=== PATIENT | female | born 1965 | race Caucasian/White ===

== ENCOUNTER → 2017-12-11 | Outpatient (CLI) | payer OTHER ==
[~2017-12-11] VITALS: Ht 170.2 cm; Wt 95.3 kg
[~2017-12-11] MED LIST: CATHETER FLUSH 10 ML SYR IV PRN
[2017-12-11 08:07] VITALS: BP 128/74
--- NOTE | 2017-12-11 15:40 | STRESS TEST ---
DATE OF SERVICE: 12/11/2017 RESTING AND POST-EXERCISE TECHNETIUM-99M TETROFOSMIN SPECT CT IMAGING PRIMARY CARE PHYSICIAN: Dr. Curtis. CLINICAL DIAGNOSIS: Chest discomfort. Baseline images were carried out after injection of 10.96 mCi of technetium-99m Tetrofosmin and, subsequently, exercise was carried on treadmill. This part of the study was carried out under Dr. Curtis's supervision and supervision is reported separately by him. After the patient had attained 85% of maximum predicted heart rate, 30.1 mCi of technetium-99m Tetrofosmin were injected and the exercise was continued for another minute. Review of images at rest and following stress does not indicate any distinct perfusion defects consistent with significant myocardial ischemia or infarction. Gated images showed normal global left ventricular systolic function with normal regional wall motion. Left ventricular ejection fraction is calculated to be 71%. Left ventricular end diastolic volume is 72 mL. TID is absent (0.93). CONCLUSIONS: 1. No evidence of significant myocardial ischemia or infarction. 2. Normal regional wall motion. 3. Normal global left ventricular systolic function with a calculated ejection fraction of 71%. Job ID: [id number] DocumentID: [id number] Dictated Date: 12/11/2017 14:51:19 Tooth Polisher Date: 12/11/2017 15:26:45 Dictated By: NAT GONZALEZ MD, MA, FACP, FACC,
== END ==
LOC: CARD 06:40
PROVIDERS: ATTEND Internal Medicine
DX: R07.9 Chest pain, unspecified (principal)
CPT/HCPCS: 78452; 93017

== ENCOUNTER → 2018-10-12 | Outpatient (CLI) | payer OTHER ==
--- NOTE | 2018-10-12 10:34 | Diagnostic Imaging Report ---
INDICATION: Preop evaluation prior to left knee arthroplasty.. TECHNIQUE: Single view chest 10:22 AM. CORRELATION STUDY: None FINDINGS: The heart size, mediastinal configuration and pulmonary vascularity are within normal limits. The lungs are clear with no consolidating infiltrate. There is no significant effusion or pneumothorax. IMPRESSION: 1. No radiographic findings to suggest acute abnormality of the chest. Dictated by: Dictated on workstation # [id number]
== END ==
LOC: CARD 10:09
DX: Z01.810 Encounter for preprocedural cardiovascular examination (principal); Z01.811 Encounter for preprocedural respiratory examination; M17.12 Unilateral primary osteoarthritis, left knee
CPT/HCPCS: 71045; 93005